=== PATIENT | male | born 1985 | race Caucasian/White ===

== ENCOUNTER → 2016-07-08 | Outpatient (CLI) | payer BC ==
[~2016-07-08] MED LIST: BIOT25004 PO; CHOL20002 PO; FINA1TAB PO; FISH OIL PO; MIRT15TA4 PO; MULT-516 PO
== END ==
LOC: STAR 15:16
PROVIDERS: ATTEND Otolaryngology
DX: Z02.9 Encounter for administrative examinations, unspecified (principal)